=== PATIENT | female | born 1970 | race American Indian/Alaskan Native ===

== ENCOUNTER 2016-08-02 20:10 | Observation (INO) | payer OTHER ==
[2016-08-02 20:22] LABS: Basophils % (Auto) 0.8 % (0.0-1.8); Eosinophils % (Auto) 2.6 % (0.0-4.3); Hematocrit 42.2 % (30.3-42.9); Hemoglobin 14.2 gm/dl (10.1-14.3); Mean Corpuscular HGB Conc 34 % (30-34); Mean Corpuscular Hemoglobin 32 pg (28-32); Mean Corpuscular Volume 95 fl (79-97); Platelet Count 343 K/mm3 (140-440); Red Blood Count 4.46 M/mm3 (3.65-5.03); Red Cell Distribution Width 12.8 % (13.2-15.2); White Blood Count 9.8 K/mm3 (4.5-11.0)
[2016-08-02 20:32] LABS: INR 0.89 (0.87-1.13); Partial Thromboplastin Time 23.5 Sec. (24.2-36.6)
--- NOTE | 2016-08-02 20:32 | Cat Scan Report ---
FINAL REPORT EXAM: CT HEAD/BRAIN WO CON HISTORY: neuro deficits \T\lt; 6hrs or sx present upon awakening TECHNIQUE: CT head without contrast PRIORS: None. FINDINGS: No acute intra-axial or extra-axial hemorrhage is identified. There is no evidence of midline shift or mass effect. The ventricles and sulci are within normal limits. Hightower-white matter differentiation is intact. No acute parenchymal abnormalities seen. Bony calvarium is grossly intact. Visualized portions of the mastoids and paranasal sinuses are unremarkable. IMPRESSION: Negative CT head
[2016-08-02 21:30] LABS: Anion Gap 20 mmol/L; Blood Urea Nitrogen 9 mg/dL (7-17); Calcium 9.5 mg/dL (8.4-10.2); Carbon Dioxide 24 mmol/L (22-30); Chloride 99.6 mmol/L (98-107); Glucose 96 mg/dL (65-100); Potassium 3.1 mmol/L (3.6-5.0); Sodium 140 mmol/L (137-145)
--- NOTE | 2016-08-02 21:34 | Emergency Department Report ---
ED Neuro Deficit HPI - General Chief Complaint: Neuro Symptoms/Deficit Stated Complaint: POSSIBLE CVA Time Seen by Provider: 08/02/16 20:12 Source: patient, EMS Mode of arrival: Stretcher Limitations: Physical Limitation - History of Present Illness Initial Comments: 46-year-old female presents emergency department via EMS as a possible stroke. Per report, the patient was at a local bar when she began having slurred speech and left-sided weakness. Onset was at 7:45 PM. EMS was called and the patient was transported emergency department. Patient admits to drinking alcohol tonight. She does states that her left side feels funny. There are no other complaints. -: Sudden, This evening Time: 19:45 Last Observed Normal: 19:45 Location: speech, left arm, left leg Presenting Symptoms: Present: Weak/Paralyzed One Side, Unable to Speak Clearly History of same: No Severity: moderate Quality: weak, improving Improves With: time Worsens With: none On Anticoagulants: No Context: sudden onset Associated Symptoms: denies other symptoms ED Review of Systems ROS: Stated complaint: POSSIBLE CVA Other details as noted in HPI Comment: All other systems reviewed and negative Neurological: as per HPI, weakness ED Past Medical Hx - Past Medical History Previous Medical History?: Yes Hx Hypertension: Yes - Surgical History Past Surgical History?: No - Family History Family history: no significant - Social History Smoking Status: Never Smoker Substance Use Type: Alcohol ED Neuro Physical Exam - General Limitations: Physical Limitation General appearance: alert, in no apparent distress, appears intoxicated Suspected Stroke: Yes - Head Head exam: Present: atraumatic, normocephalic - Eye Eye exam: Present: normal appearance, PERRL, EOMI - ENT ENT exam: Present: normal exam, normal orophraynx, mucous membranes moist - Neck Neck exam: Present: normal inspection, full ROM. Absent: tenderness - Respiratory Respiratory exam: Present: normal lung sounds bilaterally. Absent: respiratory distress - Cardiovascular Cardiovascular Exam: Present: regular rate, normal rhythm, normal heart sounds - GI/Abdominal GI/Abdominal exam: Present: soft, normal bowel sounds. Absent: distended, tenderness - Extremities Exam Extremities exam: Present: normal inspection, full ROM. Absent: tenderness - Back Exam Back exam: Present: normal inspection, full ROM. Absent: tenderness - Neurological Exam Neurological exam: Present: alert, oriented X3 - NIHSS Assessment Interval: Baseline 1a. Level of Consciousness: alert 1b. LOC Questions: answers correctly 1c. LOC Commands: performs tasks correctly 2. Best Gaze: normal 3. Visual: no visual loss 4. Facial Palsy: normal symmetrical movement 5b. Motor Arm Right: no drift 5a. Motor Arm Left: no drift 6a. Motor Leg Left: no gravity effort 6b. Motor Leg Right: no drift 7. Limb Ataxia: absent 8. Sensory: normal 9. Best Language: no aphasia 10. Dysarthria: normal 11. Extinction/Inattention: no abnormality Total Score: 3 Stroke Severity: Minor Stroke - Skin Skin exam: Present: warm, dry, intact ED Course Vital Signs 08/02/16 21:00 Pulse Rate 81 Respiratory 18 Rate Blood Pressure 132/87 [Right] O2 Sat by Pulse 100 Oximetry - Reevaluation(s) Reevaluation #1: 08/02/16 21:39 Code stroke was initially activated. Patient was evaluated by the Tele- neurologist, who is not convinced that this is actual stroke. Patient is refusing tPA menstruation. Recommendations are for admission and further evaluation for stroke including MRI. On reexamination, the patient is now moving all extremities on difficulty. - Lab Data Result diagrams: 08/02/16 20:15 Lab Results 08/02/16 08/02/16 08/02/16 Range/Units 20:15 20:15 20:15 WBC 9.8 (4.5-11.0) K/mm3 RBC 4.46 (3.65-5.03) M/mm3 Hgb 14.2 (10.1-14.3) gm/dl Hct 42.2 (30.3-42.9) % MCV 95 (79-97) fl MCH 32 (28-32) pg MCHC 34 (30-34) % RDW 12.8 L (13.2-15.2) % Plt Count 343 (140-440) K/mm3 Lymph % (Auto) 39.0 H (13.4-35.0) % Sherman % (Auto) 6.8 (0.0-7.3) % Eos % (Auto) 2.6 (0.0-4.3) % Baso % (Auto) 0.8 (0.0-1.8) % Lymph # 3.8 (1.2-5.4) K/mm3 Sherman # 0.7 (0.0-0.8) K/mm3 Eos # 0.3 (0.0-0.4) K/mm3 Baso # 0.1 (0.0-0.1) K/mm3 Seg Neutrophils % 50.8 (40.0-70.0) % Seg Neutrophils # 5.0 (1.8-7.7) K/mm3 PT 11.9 L (12.2-14.9) Sec. INR 0.89 (0.87-1.13) APTT 23.5 L (24.2-36.6) Sec. Thrombin Time 16.2 (15.1-19.6) Sec. - EKG Data -: EKG Interpreted by Me EKG shows normal: sinus rhythm, axis, intervals, QRS complexes, ST-T waves Rate: tachycardia When compared to previous EKG there are: previous EKG unavailable Interpretation: normal EKG - Radiology Data Radiology results: report reviewed CT of the brain shows no acute intracranial abnormality. - Differential Diagnosis stroke, TIA, alcohol intoxication - Thrombolytic Inclusion/Exclusion Thrombolytic Contraindications: Rapidily Improving s/s Critical care attestation.: If time is entered above; I have spent that time in minutes in the direct care of this critically ill patient, excluding procedure time. ED Disposition Clinical Impression: TIA (transient ischemic attack) Qualifiers: Transient cerebral ischemia type: unspecified Qualified Code(s): G45.9 - Transient cerebral ischemic attack, unspecified Alcohol intoxication Qualifiers: Complication of substance-induced condition: uncomplicated Qualified Code(s): F10.120 - Alcohol abuse with intoxication, uncomplicated Disposition: OP ADMITTED IP TO THIS HOSP Is pt being admited?: Yes Condition: Stable Referrals: PRIMARY CARE,MD [Primary Care Provider] - 3-5 Days Time of Disposition: 21:42
[2016-08-02] MEDS ORDERED: TYLENOL PO ONE (22:11)
--- NOTE | 2016-08-02 23:03 | History and Physical Report ---
History of Present Illness Date of admission: 08/02/16 21:43 Chief complaint: I feel weak, and my face was drooping History of present illness: 46 Yo Female with HTN presents to ED for evaluation. Pt was drinking at a local bar and suddenly complained of new onset left sided weakness and slurred speech. EMS notified and pt transported to ED. Pt found to have ETOH intoxication. Pt denies fever, chills, CP, Palpitation, NVD, Syncope, pain, or recent ill contacts. Past History Past Medical History: hypertension Past Surgical History: No surgical history, Other (reviewed) Social history: , lives with family. denies: smoking, alcohol abuse, prescription drug abuse Family history: diabetes, hypertension Medications and Allergies Allergies Allergy/AdvReac Type Severity Reaction Status Date / Time No Known Allergies Allergy Verified 08/02/16 23:09 Review of Systems All systems: negative Neurological: weakness Exam - Constitutional Vitals: Temp Pulse Resp BP Pulse Ox 97 H 17 118/54 100 08/02/16 22:28 08/02/16 22:28 08/02/16 22:28 08/02/16 22:28 General appearance: Present: no acute distress, well-nourished - EENT Eyes: Present: PERRL ENT: hearing intact, clear oral mucosa - Neck Neck: Present: supple, normal ROM - Respiratory Respiratory effort: normal Respiratory: bilateral: CTA - Cardiovascular Heart Sounds: Present: S1 & S2. Absent: rub, click - Extremities Extremities: pulses symmetrical, No edema Peripheral Pulses: within normal limits - Abdominal General gastrointestinal: Present: soft, non-tender, non-distended, normal bowel sounds Female genitourinary: Present: normal - Integumentary Integumentary: Present: clear, warm, dry - Musculoskeletal Musculoskeletal: gait normal, strength equal bilaterally - Psychiatric Psychiatric: appropriate mood/affect, intact judgment & insight - Neurologic Neurologic: CNII-XII intact, moves all extremities Results - Labs CBC & Chem 7: 08/02/16 20:15 08/02/16 20:15 Assessment and Plan - Patient Problems (1) Alcohol intoxication Current Visit: Yes Status: Acute Qualifiers: Complication of substance-induced condition: uncomplicated Qualified Code(s ): F10.120 - Alcohol abuse with intoxication, uncomplicated Plan to address problem: supportive care, thiamine, folic acid, multivitamin, supportive care. (2) TIA (transient ischemic attack) Current Visit: Yes Status: Suspected Qualifiers: Transient cerebral ischemia type: unspecified Qualified Code(s): G45.9 - Transient cerebral ischemic attack, unspecified Plan to address problem: Symptoms resolved with therapy, CT head negative, Pt declines MRI/MRA. (3) DVT prophylaxis Current Visit: Yes Status: Acute
[2016-08-02] MEDS ORDERED: TYLENOL ONE (23:04)
[2016-08-03 11:18] VITALS: BP 119/57
--- NOTE | 2016-08-03 11:29 | Discharge Summary ---
Providers - Providers Date of Admission: 08/02/16 21:43 Date of discharge: 08/03/16 Attending physician: MARTÍN SWEENEY Primary care physician: RECOVERY ASSISTANT Hospitalization Condition: Stable Hospital course: 46 Yo Female presented to ED for evaluation. Pt was drinking at a local bar and suddenly complained of new onset of left sided weakness and slurred speech. EMS brought the patient to the ER and her alcohol level was elevated. Her head CT did not show any acute finding. Her symptom resolved completely when she was in the emergency. The entire episode lasted for about 5-10 minutes. Patient wanted to follow up with her primary care physician and did not want to stay for further MRI or repeat CT scan of head. She was discharged home with outpatient follow-up. Discharge diagnosis: (1) Alcohol intoxication Current Visit: Yes Status: Acute Qualifiers: Complication of substance-induced condition: uncomplicated Qualified Code(s ): F10.120 - Alcohol abuse with intoxication, uncomplicated Plan to address problem: (2) TIA (transient ischemic attack) Current Visit: Yes Status: Suspected Qualifiers: Transient cerebral ischemia type: unspecified Qualified Code(s): G45.9 - Transient cerebral ischemic attack, unspecified Plan to address problem: Symptoms resolved on admission, CT head negative, Pt declines MRI/MRA or further study. Disposition: DISCHARGED TO HOME OR SELFCARE Time spent for discharge: 32 minutes Core Measure Documentation - Palliative Care Palliative Care/ Comfort Measures: Not Applicable - Core Measures Any of the following diagnoses?: stroke - Stroke Discharge Requirements Statin for LDL = or >70 mg/dl on DC: Yes Anticoag for atrial fib/atrial flutter: Not Applicable Antithrombotic for ischemic stroke: Yes Exam - Physical Exam Narrative exam: GENERAL: well-developed and well-nourished -[place] female lying on bed appeared to be in no discomfort. HEENT: Normocephalic. Atraumatic. No conjunctival congestion or icterus. Patient has moist mucous membranes. NECK: Supple. Trachea midline. CHEST/LUNGS: Clear to auscultated bilaterally, breathing nonlabored. No wheezes crackles or rhonchi. HEART/CARDIOVASCULAR: Regular in rate and rhythm. S1 and S2 positive. ABDOMEN: Abdomen is soft, nontender. Patient has normal bowel sounds. SKIN: There is no rash. Warm and dry. NEURO: No focal motor deficit. Follows command. MUSCULOSKELETAL: No joint effusion or tenderness. EXTRIMITY: No edema, no cyanosis or clubbing. PSYCH: Cooperative. - Constitutional Vitals: Temp Pulse Resp BP Pulse Ox 97.9 F 78 18 119/57 97 08/03/16 08:30 08/03/16 08:30 08/03/16 08:30 08/03/16 08:30 08/03/16 10:00 Plan Activity: advance as tolerated Weight Bearing Status: Non-Weight Bearing Diet: low cholesterol, low salt Follow up with: PRIMARY CARE, [Primary Care Provider] - 3-5 Days Forms: AMA Form Prescriptions: Pravastatin Sodium [Pravastatin] 40 mg PO QHS 30 Days Aspirin [Aspirin BABY CHEW TAB] 81 mg PO QDAY 30 Days
== END 2016-08-03 11:50 | disposition home or self-care (01) ==
LOC: ED 20:10 → 4A 21:43
PROVIDERS: ADMIT Internal Medicine; ATTEND Internal Medicine
DX: F10.120 Alcohol abuse with intoxication, uncomplicated (principal); G45.9 Transient cerebral ischemic attack, unspecified; I10 Essential (primary) hypertension; Z83.3 Family history of diabetes mellitus; Z82.49 Family history of ischemic heart disease and other diseases of the circulatory system
CPT/HCPCS: 36415; 70450; 80048; 82962; 84484; 85025; 85610; 85670; 85730; 99285; G0378; G0480; 80320